=== PATIENT | female | born 1995 | race African-American/Black ===

== ENCOUNTER 2016-05-13 11:23 | Emergency (ER) | payer MEDICAID ==
[~2016-05-13] VITALS: Ht 165.1 cm; Wt 105.0 kg
[~2016-05-13 11:23] MED LIST: ADVAI100I PO; ALBU8I INH; PRED20 PO; RANI150T PO
[2016-05-13 11:24] VITALS: BP 131/87; PULSE 103; RESP 14; TEMP 98.1; O2SAT 99
--- NOTE | 2016-05-13 14:22 | PD ---
HPI Chief Complaint: Pain: Acute or Chronic Time Seen by Provider: 14:17 Travel History International Travel<30 days: No Contact w/Intl Traveler<30days: No Traveled to known affect area: No History of Present Illness HPI 20-year-old female presents to the emergency Department with complaint of left knee pain 6 months. Denies new or recent injury. Denies old injury. Denies paresthesias, loss of sensation, decreased range of motion, decreased strength to the affected extremity. Denies fever, chills, nausea, vomiting. Pain is aggravated when she works out, stands for a long time while at work, or walks for an extended amount of time. Denies erythema or edema to her knee. Has tried Biofreeze with minimal relief. Has not taken any other medications or tried any other treatments to alleviate her symptoms. Allergies to eggs. Does not have primary care provider. Denies significant past medical history. No other modifying factors or associated signs and symptoms. History Social History Alcohol Use: No Tobacco Use: No Allergies-Medications (Allergen,Severity, Reaction): Coded Allergies: Egg Allergy (Verified Allergy, Mild, THROAT CLOSES, 05/13/16) Reported Meds & Prescriptions Reported Meds & Active Scripts Active Reported Advair Diskus 100/50 (Salmeterol Xinafoate/Fluticasone) Fluticasone/Salmeterol 100/50 Inh 1 Puff PO BID Ventolin Hfa (Albuterol Sulfate) 8 Gm Aero 2 Puff INH Q6 * SHAKE WELL BEFORE USE * Review of Systems Except as stated in HPI: all other systems reviewed are Neg Physical Exam Narrative GENERAL: Well-nourished, well-developed female patient, in no acute distress SKIN: Warm and dry. HEAD: Atraumatic. Normocephalic. EYES: Pupils equal and round. No scleral icterus. No injection or drainage. ENT: Mucosa pink and moist. Airway patent. NECK: Trachea midline. CARDIOVASCULAR: Regular rate. RESPIRATORY: No accessory muscle use. GASTROINTESTINAL: Rounded. MUSCULOSKELETAL: Left knee is nonedematous and nonerythematous and with full range of motion with flexion to 90; no point tenderness on palpation to the lateral, medial, patellar aspect; joint is stable with negative drawer test; no obvious deformities. Left lower extreme is supple and non-tense with 2+ pedal pulses and sensory intact without erythema or edema. Patient is ambulatory with a normal gait in the room. No obvious deformities. No cyanosis. No edema. NEUROLOGICAL: Awake and alert. Oriented 3. No obvious cranial nerve deficits. Motor grossly within normal limits. Normal speech. PSYCHIATRIC: Appropriate mood and affect; insight and judgment normal. Data Data Last Documented VS Vital Signs Date Time Temp Pulse Resp B/P Pulse Ox O2 Delivery O2 Flow Rate FiO2 05/13/16 11:24 98.1 103 14 131/87 99 Room Air MDM Medical Screen Exam Complete: Yes Emergency Medical Condition: No Differential Diagnosis Arthritis, bursitis, meniscal tear, nonspecific knee pain Narrative Course 19-year-old female with left knee pain greater for approximately 6 months. Denies injury. Patient is ambulatory with a normal gait. The left knee is without erythema, edema, tenderness on palpation. The left lower extremities with full range of motion and strength. Left lower extremity supplemental to 2 + pedal pulse and sensory intact. I do not suspect fracture or dislocation and feel imaging is not necessary at this time. Vital signs are stable and the patient is stable for outpatient follow-up and treatment. The patient has no urgent or emergent medical complaints. There is no emergent or urgent medical need at this time. I instructed the patient to follow up with their primary care provider. A medical screening exam was performed: At the time of evaluation the presenting medical condition was determined not to be of an emergent nature. The patient was given the option of receiving additional care, but declined. Patient was given options for additional community resources from which to obtain care. The Patient Has Been advised to seek medical attention for their presenting complaint. The patient has been advised to return to the ER at any time if an emergent condition develops. Primary Impression: Encounter for medical screening examination Condition: Stable Ivory Jarquin May 13, 2016 14:22
== END 2016-05-13 14:24 | disposition left against medical advice (07) ==
LOC: NEPB 11:23
DX: M25.562 Pain in left knee (principal)
CPT/HCPCS: 99281